=== PATIENT | female | born 1985 | race Caucasian/White ===

== ENCOUNTER 2023-05-24 21:12 | Emergency (ER) | payer SELFPAY ==
[2023-05-24 22:21] VITALS: BP 150/81; PULSE 86; RESP 18; TEMP 36.8; O2SAT 98; BMI 31.6
--- NOTE | 2023-05-24 22:55 | CT_ITS ---
STUDY: CT FACIAL BONES WITHOUT CONTRAST REASON FOR EXAM: Female, 37 years old. Congestion nasal drainage RADIATION DOSAGE (If Supplied By Facility): CTDIvol = ( 29.38 ) mGy, DLP = ( 422.57 ) mGycm TECHNIQUE: The patient was scanned in a multi detector CT scanner. Sagittal and coronal images were reconstructed. Individualized dose optimization techniques were used for this CT. COMPARISON: None. FINDINGS: Normal soft tissue structures. Normal orbital yang and orbital contents. Normal nasal bones and anterior nasal spine. Normal facial bones. There is no demonstrated fracture. There is opacification of the left sphenoid, left maxillary sinus and left frontal sinus consistent with left-sided pansinusitis. There is high density within the central portion of the left maxillary, ethmoid and frontal sinuses which may be associated with fungal infection, hemorrhage or significant inflammatory process. Due to central location, mass is less likely. CT/Sinus/Facial Bone IMPRESSION: Left-sided pansinusitis as described. Electronically Signed: Viri Stevens MD at 23:26 EST ,
--- NOTE | 2023-05-24 22:55 | EX.ED.DYSGE1 ---
HPI History of Present Illness Chief Complaint: Cold Sx Informant: patient Narrative Narrative: Patient complains of sinus infection and hives. Patient states she has been having sinus problems since summer. She thought it was just allergies. But she states normally the left side of her nose will run and get congested easily. She was seen in [place] [facility] back in [facility]. She was placed on amoxicillin. She has had 2 virtual appointments since then. She is currently on amoxicillin for the third time. In between all this she developed hives. The hives do not necessarily occur just when she is on amoxicillin. She was on Claritin, Sharon, Benadryl, Pepcid and did 5 days of prednisone that she just finished. But her dosage of prednisone was just 20 mg a day. She states the hives still come and go. She has never had fevers with this. Not coughing. No sore throat. No weight loss. No headaches. She does not currently have a private physician to see. [facility] Home Medications levofloxacin 500 mg tablet 500 mg PO DAILY #10 tabs 05/25/23 [Rx Last Taken Unknown] prednisone 20 mg tablet 60 mg (3 x 20 mg) PO DAILY #15 TABLETS 05/25/23 [Rx Last Taken Unknown] Allergy/AdvReac Type Severity Reaction Status Date / Time No Known Allergies Allergy Verified 05/24/23 22:23 Surgical History Previous section Social History Smoking Status: Current every day smoker tobacco type: cigarettes ROS ROS ED Constitutional Constitutional ED: Denies chills, fever(s), subjective or sweats Eyes Eyes: Denies blurry vision, change in vision or diplopia ENT ENT ED: Reports rhinorrhea and other Details: See history of present illness. ; Denies ear pain or sore throat Cardiovascular Cardiovascular: Denies chest pain Respiratory/Chest Respiratory/Chest: Denies cough, dyspnea or sputum Gastrointestinal Gastrointestinal: Denies nausea or vomiting Musculoskeletal Musculoskeletal: Denies myalgias Integumentary Denies rash Neurologic Neurologic: Denies headache(s), paresthesias or weakness Endocrine Endocrinology: Denies polydipsia or polyuria Allergic/Immunologic Allergic/Immunologic ED: Reports urticaria; Denies mouth swelling or tongue swelling EXAM Physical Exam Narrative Exam Narrative: CONSTITUTIONAL: Patient is nontoxic in appearance. The patient looks comfortable. Work of breathing looks normal. HEENT: No notable trauma. Mucous membranes moist. Both nasal passages do appear to be clear at this time. There is no purulent drainage. She feels pressure on the left side of the face but no real tenderness. No redness. No clinical indication of pots puffy tumor. EYES: No conjunctival injection. No proptosis. Range of motion is normal and without pain. NECK:No JVD. No stridor. CARDIOVASCULAR: Regular rate. Regular rhythm. No notable murmur. No JVD. RESPIRATORY: No respiratory distress. Breathing is unlabored. No wheezes. No rhonchi. No rales. GASTROINTESTINAL: Not distended. Bowel sounds are normal. No tenderness. GENITOURINARY: No tenderness over the bladder. No CVA tenderness. MUSCULOSKELETAL: Atraumatic. No peripheral edema. NEUROLOGICAL: Patient is alert and appropriate. No focal deficit noted. SKIN: Patient does have a few hives on the back of her arms. She has areas of excoriation. No petechiae or purpura. No pallor. No vesicles. PSYCHIATRIC: Patient is calm. Mood is appropriate. Const Vital Signs: 05/24/23 22:21 05/24/23 22:33 Temperature 98.3 F Temperature Source Temporal Pulse Rate 86 Respiratory Rate 18 Respiratory Effort Normal Respiratory Pattern Normal Blood Pressure 150/81 H Blood Pressure Mean 104 Pulse Ox 98 Oxygen Delivery Method Room Air MDM MDM MDM Narrative Medical decision making narrative: My independent interpretation of the patient's sinus CT does show extensive sinusitis on the left consistent with her history. Final reading does show opacification of the left sphenoid maxillary and frontal sinuses. They also note a higher density area within the central portion that could be fungal infection. It also could be hemorrhage or just significant inflammatory process. I explained these findings to the patient. I explained that this is very important that they follow-up with ENT. She has had symptoms going on since the summer. She has been on amoxicillin 3 times. She will stop that. I will start Levaquin at this time. It has a high rate of absorption. We will also give her dose of prednisone for several days at a higher dose of 60 mg. I explained that this may not resolve her symptoms but we need to try to get both of her symptoms improved. It is also possible that some of her hives are from the amoxicillin. Again, I reaffirmed the importance of follow-up. She will need to see ENT because she may even end up needing procedure to get the symptoms to resolve. Radiography Diagnostic Testing: Clinical Impression(s) from Imaging Studies Facial/Sinus 05/24/23 22:55 IMPRESSION: Left-sided pansinusitis as described. Electronically Signed: Viri Stevens MD at 23:26 EST , Discharge Plan Triage Chief Complaint: Cold Sx ED Provider: Adeel Null Dx/Rx/DC Orders Clinical Impression: Recurrent urticaria, Sinusitis Instructions: ED Hives (Adult), ED Sinusitis (Antibiotic Treatment) Prescriptions: New prednisone 20 mg tablet 60 mg PO DAILY Qty: 15 0RF levofloxacin [levofloxacin] 500 mg tablet 500 mg PO DAILY Qty: 10 0RF Primary Care Provider: NOT,DEFINED Referrals: Dmitri Chaves MD [Med Staff - Courtesy Staff] - As soon as possible (Call for appointment in the morning to get in within the next week or so. They may see you after you are done with your current medications.) NOT,DEFINED [Primary Care Provider] - Disposition Disposition: Home, Self Care Capacity Legal Psychiatric Social Worker Reflex Medical hold order details:: IF a medical hold is selected below, a suggested order for a MEDICAL HOLD will reflex upon signing the document. Next of kin: [place] law dictates a PRIORITY LIST for identifying legal decision-maker/legal next of kin in the following order (LNOK): 1st: The patient?s legal guardian, if any 2nd: The patient's spouse (if status is questionable, consult Risk Management) 3rd: The patient?s adult child(thais) (majority, if multiple children) 4th: The patient?s parents 5th: The patient?s adult siblings (majority, if multiple children siblings)
[2023-05-25 00:34] VITALS: PULSE 83; RESP 16; TEMP 36.2; O2SAT 99
== END 2023-05-25 00:34 | disposition home or self-care (01) ==
PROVIDERS: Emergency Provider Emergency Medicine; Visit Provider Emergency Medicine
DX: L50.9 Urticaria, unspecified (principal); F17.210 Nicotine dependence, cigarettes, uncomplicated
CPT/HCPCS: 70486; 99282

== ENCOUNTER 2024-04-17 08:04 | Emergency (ER) | payer BC, SELFPAY ==
[2024-04-17 08:05] VITALS: BP 132/73; PULSE 83; RESP 16; TEMP 37; O2SAT 100
--- NOTE | 2024-04-17 08:14 | EX.ED.DYSGE1 ---
HPI History of Present Illness Chief Complaint: General Illness [facility] Home Medications ?Medication ?Instructions ?Recorded ?Last Taken ?Type levofloxacin 500 mg tablet 500 mg PO DAILY #10 tabs 05/25/23 Unknown Rx prednisone 20 mg tablet 60 mg (3 x 20 mg) PO DAILY #15 05/25/23 Unknown Rx TABLETS ondansetron 4 mg disintegrating 4 mg PO Q8H PRN PRN Nausea #10 tabs 04/17/24 Unknown Rx tablet oxycodone 5 mg tablet 5 mg PO Q6H PRN pain 3 days #12 04/17/24 Unknown Rx tabs Allergy/AdvReac Type Severity Reaction Status Date / Time No Known Allergies Allergy Verified 04/17/24 08:05 Surgical History Previous section Social History Smoking Status: Current every day smoker tobacco type: cigarettes EXAM Physical Exam Const Vital Signs: 04/17/24 08:05 04/17/24 10:05 04/17/24 11:18 Temperature 98.6 F 98 F Temperature Source Oral Pulse Rate 83 67 66 Respiratory Rate 16 14 14 Blood Pressure 132/73 H 120/81 H 126/79 H Blood Pressure Mean 92 94 94 Pulse Ox 100 99 97 Oxygen Delivery Method Room Air Room Air MDM MDM MDM Narrative Medical decision making narrative: HISTORY OF PRESENT ILLNESS: 38-year-old female presents with multiple complaints. She states she had a recent sinus surgery on Sunday. History provided by the patient significant other. She states since then she has noticed decreased p.o. intake. She also complains of nausea. Denies vomiting or diarrhea. Chief concern is for dehydration they note she is almost out of pain medication. Such as 1 dose of Vicodin left. She has been using ibuprofen intermittently approximately every 6-8 hours at some times. Is not using Tylenol regularly. The patient also notes right lower back pain. The pain does not radiate. No urinary complaints such as dysuria, urgency or frequency noted. She denies any falls or other trauma. She denies chest pain or shortness of breath to me. Notes this began this morning as she was sleeping. Is not associate with movement. Patient denies any saddle anesthesia, urinary retention, bowel or bladder incontinence, lower extremity weakness, fever or IV drug use, no recent spinal manipulation or surgery, no recent urinary catheterization. REVIEW OF SYSTEMS: Pertinent positives: Decreased p.o. intake, back pain Pertinent negatives: Bowel or bladder incontinence, urinary retention, focal numbness or weakness. Shortness of breath. PHYSICAL EXAM: Nursing triage notes reviewed, Vital signs reviewed Constitutional: please see mdm HENT: MMM, slight edema noted to nasal bridge, light yellow nasal discharge noted, no bleeding, no epistaxis, no nasal septal hematoma noted Eyes: Pupils equal round and reactive to light, Extraocular muscles intact Neck: No stridor, no JVD, full neck ROM Lungs: Clear to auscultation, No wheezing or rales. No increased work of breathing, no conversational dyspnea, no accessory muscle use, no nasal flaring. No respiratory distress noted Heart: Regular rate and rhythm, No murmurs, No rubs and No gallops, 2+ distal pulses (radial, femoral, posterior tibial) in all extremities Abdomen: Soft, there is no tenderness, rigidity, rebound or guarding, no obvious peritoneal signs, no palpable pulsatile abdominal masses, no auscultated abdominal bruit : No CVAT Back: Right lower back TTP Extremities: No edema Neuro: No new focal neurological deficits, cranial nerves II through XII intact, 5/5 strength in all present extremities. Intact sensation to light touch in all present extremities, 2+ reflexes bilateral patella tendons. Skin: No rash or lesions noted MEDICAL DECISION MAKING: Chief Complaint: Decreased p.o. intake, right lower back pain External records reviewed: Reviewed prior ED notes from May, reviewed allergies, active home medications Factors affecting care: Recent sinus surgery Social determinants of health: none History obtained from others: none Consults: none [facility] Narrative: The patient was initially hemodynamically stable, afebrile and nontoxic-appearing. While there is report of fever and the triage note the patient denied fever to me and she is afebrile here in the emergency department. Exam overall unremarkable. No signs of lower extremity focal neurologic deficit. No signs of focus of infection I considered the following differential diagnosis: Dehydration, electrolyte disturbance, ACS, pneumonia, postsurgical pain, UTI, viral illness I obtained a broad lab and imaging workup to further elucidate etiology of the patient's complaints Initially treated the patient with IV fluids (100 cc bolus), 4 mg IV Zofran, 4 mg IV morphine, 50 mg IV ALL IMAGES (IF OBTAINED) HAVE BEEN PERSONALLY REVIEWED AND INTERPRETED BY MYSELF. EKG with normal sinus rhythm at a rate of 76, normal axis, no intervals with a QTc of 425, no STEMI CBC with no leukocytosis suggestive of systemic inflammation, mild anemia but no thrombocytopenia noted BMP without evidence of significant electrolyte abnormalities, no anion gap, no acute kidney injury. LFTs show no evidence of hepatobiliary pathology. Lipase is wnl indicating no pancreatic inflammation. High-sensitivity troponin is negative, no evidence of myocardial ischemia I have personally reviewed and interpret the patient's chest x-ray. Chest x-ray is unremarkable for pulmonary edema, pneumothorax, pneumonia or focal cardiopulmonary abnormality. COVID flu RSV negative Will prescribe Zofran and oxycodone. The synthesis of the patient's history, physical exam, labs images suggest no acute life-limiting etiology to explain her myriad of symptoms. I suspect she is having from postop pain. Close surgical follow-up was encouraged. The patient and/or family, caregivers express understanding. The patient and/or family, caregivers agrees with the plan. Shared decision making: I will have a discussion with the patient and or visitors regarding risk/benefits of further testing or admission. They will be made aware of of the risk/benefits inherent in this decision they will be given the opportunity to voice understanding. Total critical care time today provided was at least 0 minutes. This excludes separately billable procedures. Critical care time (if documented) is secondary to the patient having high probability of clinically significant/life threatening deterioration in the patient's condition which required my urgent intervention. Impression: 1. Acute Back pain 2. Postop pain 3. Postop nausea Dispo: Discharge home This note was generated with [employer] dictation software. It may contain incorrect words, spelling, and punctuation that were not noted in review of the chart prior to signing. Lab Data Labs: Laboratory Results - last 24 hr 04/17/24 04/17/24 04/17/24 08:20 09:35 11:21 WBC 8.6 RBC 3.57 L Hgb 11.0 L Hct 32.4 L MCV 90.8 MCH 30.8 MCHC 34.0 RDW Std Deviation 40.9 RDW Coeff of Lorna 12.3 Plt Count 313 MPV 9.5 Sodium 138 Potassium 3.7 Chloride 105 Carbon Dioxide 29.0 Anion Gap 4 L BUN 15 Creatinine 1.00 Est GFR (MDRD) Af Amer 80 Est GFR (MDRD) Non-Af 66 BUN/Creatinine Ratio 15.0 Glucose 88 Calcium 8.9 Total Bilirubin 0.40 AST 9 L ALT 24 Alkaline Phosphatase 51 Troponin I High Sens 4 4 Total Protein 7.1 Albumin 3.6 Globulin 3.5 Albumin/Globulin Ratio 1.0 Urine Test Negative Radiography Diagnostic Testing: Clinical Impression(s) from Imaging Studies Chest X-Ray 04/17/24 09:01 IMPRESSION: Normal x-ray examination of the chest. Electronically Signed: Rio Vicente MD at 9:17 EST , Discharge Plan Triage Chief Complaint: General Illness ED Provider: Manuel Rene Dx/Rx/DC Orders Prescriptions: New ondansetron 4 mg tablet,disintegrating 4 mg PO Q8H PRN PRN (Reason: Nausea) Qty: 10 0RF oxycodone 5 mg tablet 5 mg PO Q6H PRN (Reason: pain) 3 Days Qty: 12 0RF No Action prednisone 20 mg tablet 60 mg PO DAILY Qty: 15 0RF levofloxacin [levofloxacin] 500 mg tablet 500 mg PO DAILY Qty: 10 0RF Primary Care Provider: Care Physician,No Primary Referrals: Francisco Fernández MD [Med Staff - Mail Courier] - Activity Restrictions/Additional Instructions: Thank you for trusting us with your care today! Your labs images were reassuring. Please take Tylenol (2 pills, 650 mg), ibuprofen (2 pills, 400 mg) every 6 hours as needed for pain and fever control. Please take Zofran as needed for nausea vomiting Please take oxycodone as needed for breakthrough pain of the above pain regimen does not control your pain Please return to the emergency department if your symptoms change or worsen. Please follow with your primary care physician and/or surgeon for further outpatient evaluation and management. Print Language: Kazakh Disposition Disposition: Home, Self Care Discharge Date/Time: 04/17/24 11:35
--- NOTE | 2024-04-17 08:36 | EKG12_ITS ---
Test Reason : GENERAL Blood Pressure : */* mmHG Vent. Rate : 76 BPM Atrial Rate : 76 BPM P-R Int : 132 ms QRS Dur : 94 ms QT Int : 378 ms P-R-T Axes : 32 34 15 degrees QTcB Int : 425 ms Normal sinus rhythm with sinus arrhythmia Low voltage QRS Borderline ECG Confirmed by LARRY MODI, WISAM ([id number]), editor school photograph CÉSAR KENYON ([id number]) on 04/23/2024 1:23:27 P M Referred By: Confirmed By: WISAM JUAREZ MD
[2024-04-17 08:45] LABS: Hematocrit 32.4 % (37-47); Mean Corpuscular Hgb 30.8 pg (27.0-32.0); Mean Corpuscular Volume 90.8 fL (81-99); Mean Platelet Vol. 9.5 fl (6.2-12.0); Platelet Count 313 K/mm3 (150-450); RBC Distribution Width CV 12.3 % (11.6-14.6); RBC Distribution Width SD 40.9 fl (35.1-43.9); Red Blood Count 3.57 M/mm3 (4.2-5.4); White Blood Count 8.6 K/mm3 (4.4-11.0)
[2024-04-17] MEDS: Ondansetron 4 MG/2 ML Vial IV (08:50)
[2024-04-17] MEDS: 0.9% Normal Saline (500mL Bag) 500 ML 1000 ML IV (08:50)
[2024-04-17] MEDS: Ketorolac 15 MG/ML Vial IV (08:50)
[2024-04-17] MEDS: Morphine 4 MG/ML Syringe IV (08:51)
--- NOTE | 2024-04-17 09:01 | RAD_ITS ---
STUDY: X-RAY CHEST REASON FOR EXAM: Female, 38 years old. Weakness TECHNIQUE: Single AP portable view of the chest. COMPARISON: None. FINDINGS: EKG electrodes are seen. The lungs are clear and expanded. There is no demonstrated pleural abnormality. Normal size heart. Normal mediastinum and joe. Normal visualized pulmonary arteries. Normal visualized aortic arch and descending thoracic aorta. Normal visualized thoracic spine. Normal visualized ribs, clavicles, and shoulders. There is no demonstrated abnormality of the visualized soft tissue structures of the upper abdomen. RAD/Chest 1 View (Portable) IMPRESSION: Normal x-ray examination of the chest. Electronically Signed: Rio Vicente MD at 9:17 [facility] ,
[2024-04-17 09:06] LABS: AST(SGOT) 9 U/L (15-37); Alanine Aminotransfer ALT/SGPT 24 U/L (13-56); Albumin, Serum 3.6 g/dL (3.2-5.0); Alkaline Phosphatase 51 U/L (45-117); Anion Gap 4 (5-15); BUN 15 mg/dL (7-18); Calcium,Total 8.9 mg/dL (8.5-10.1); Chloride 105 mmol/L (98-107); EST Glomerular Filtration Rate 66 mL/min (>60); Est Glom Filt Rate - Afr Amer 80 mL/min (>60); Globulin 3.5 g/dL (2.2-4.2); Glucose 88 mg/dL (74-106); Potassium 3.7 mmol/L (3.5-5.1); Protein, Total 7.1 g/dL (6.4-8.2); Sodium Level 138 mmol/L (136-145); Troponin-I HS (w/2H Reflex) 4 pg/mL (3.0-54.0)
[2024-04-17 09:43] LABS: Internal QC Validated? YES +Cl - CLEAR BKGD; Pregnancy, Urine Negative Negative
[2024-04-17 10:05] VITALS: BP 120/81; PULSE 67; RESP 14; O2SAT 99
[2024-04-17 10:42] LABS: Reflex Troponin-HS? (from REC) Y
--- NOTE | 2024-04-17 10:47 | CM.ED ---
Social work Reason for referral: no PCP Referral source: case find This SW identified patient?s lack of PCP and entered patient?s room. SW introduced self and role at [facility]. Patient was sitting up in bed, alert and oriented, and patient?s , Kaushal, was bedside. Patient gave permission to speak in front of Kaushal; Kaushal stated patient was likely dehydrated due to not being able to keep any food or water in her system following her sinus surgery on Saturday 04/14. Patient stated she was unable to even put anything in her mouth without feeling nauseous. Patient stated moving to the local area within the last year after getting , so patient?s sinus surgery was in [place] where patient used to live. Patient welcomed local resources, including [facility] Provider Directory and [facility]. Patient and patient?s denied needing further resources. No other needs identified at this time. Freida Skinner, HEALTH AIDE, [employer]
[2024-04-17 11:18] VITALS: BP 126/79; PULSE 66; RESP 14; TEMP 36.6; O2SAT 97
[2024-04-17 11:57] LABS: Troponin-I HS 4 pg/mL (3.0-54.0)
== END 2024-04-17 11:35 | disposition home or self-care (01) ==
PROVIDERS: Emergency Provider Emergency Medicine; Visit Provider Emergency Medicine
DX: M54.9 Dorsalgia, unspecified (principal); G89.18 Other acute postprocedural pain; R11.0 Nausea; F17.210 Nicotine dependence, cigarettes, uncomplicated
CPT/HCPCS: 71045; 80053; 81025; 84484; 85027; 87631; 93005; 96361; 96374; 96375; 96376; 99284; A4216; J2405